=== PATIENT | male | born 1995 | race Two or more races ===

== ENCOUNTER 2018-05-25 13:32 | Emergency (ER) | payer BC ==
--- NOTE | 2018-05-25 13:54 | EDPHY ---
H & P Stated Complaint: POss dislocated L shoulder while paddleboarding;no other injuries - Personal History Current Tetanus Diphtheria and Acellular Pertussis (TDAP): Yes - Medical/Surgical History Other PMH: shoulder dislocations - Social History Smoking Status: Never smoked Time Seen by Provider: 05/25/18 13:41 HPI/ROS: CHIEF COMPLAINT: "I think I dislocated my shoulder" HISTORY OF PRESENT ILLNESS: 22-year-old male history of left shoulder dislocation x 8 was was pushing himself up onto a paddle board from the water and felt his left shoulder dislocate. No direct trauma or fall. Occurred shortly prior to arrival. Reproducible pain with palpation range of motion. No paresthesia. PHYSICAL EXAM (Prior to examination, patient consented to physical exam, hands were washed and my usual and customary physical exam procedures followed) 1) GENERAL: Well-developed, well-nourished, alert and oriented. Appears uncomfortable 2) HEAD: Normocephalic 3) HEENT: sclera anicteric 4) LUNGS: Breathing comfortably. 5) SKIN: Skin intact bilateral 6) MUSCULOSKELETAL: Left upper extremity: Lateral step-off anterior fullness consistent with dislocation 7) NEUROLOGIC: Bilateral deltoid sensation intact DIFFERENTIAL DIAGNOSIS: In no particular include but limited to fracture, anterior dislocation, posterior dislocation (Lisa,Baldomero Sharifa) Constitutional: Initial Vital Signs Temperature (C) 36.6 C 05/25/18 13:34 Heart Rate 77 05/25/18 13:34 Respiratory Rate 18 05/25/18 13:34 Blood Pressure 137/78 H 05/25/18 13:34 O2 Sat (%) 97 05/25/18 13:34 O2 Delivery Mode Room Air Allergies/Adverse Reactions: No Known Allergies Allergy (Unverified 05/25/18 13:33) Home Medications: Medication Instructions Recorded oxyCODONE/APAP 5/325 [Percocet 1 tab PO Q6 #7 tab 05/25/18 5/325] Medical Decision Making - Diagnostics Imaging Results: Imaging Impressions Shoulder X-Ray 05/25/18 13:53 Impression: 1. Anterior dislocation left humeral head with possible Hill-Sachs deformity. Shoulder X-Ray 05/25/18 14:42 Impression: 1. Good position of the left humeral head postreduction. 2. Hill-Sachs deformity present along the superolateral aspect of the humeral head. Imaging Impressions Shoulder X-Ray 05/25/18 13:53 Impression: 1. Anterior dislocation left humeral head with possible Hill-Sachs deformity. Shoulder X-Ray 05/25/18 14:42 Impression: 1. Good position of the left humeral head postreduction. 2. Hill-Sachs deformity present along the superolateral aspect of the humeral head. Images reviewed myself (Baldomero Gonzalez) Other Provider: I evaluated and participated in the management of the patient. I also evaluated the patient independently. My co-signature indicates that I have reviewed this chart and I agree with the findings and plan of care as documented. My personal H&P findings include: The patient presents to the ED with a recurrent left shoulder dislocation. He reports moderate pain with attempted movement. He denies associated numbness or weakness. Physical examination: Clinical evidence of an empty glenohumeral fossa noted in the left shoulder. Neurovascularly intact left upper extremity. Procedure: Dislocation reduction. Indication: Dislocation The shoulder was reduced in the usual fashion without complications. Post reduction the patient's neurovascular exam is normal. Post reduction x-ray demonstrates reduction of the joint to the anatomic position. The procedure was performed by myself. (Bob Rios) - Data Points Medications Given: Discontinued Medications Ketorolac Tromethamine (Toradol) 15 mg IVP EDNOW ONE Stop: 05/25/18 13:57 Last Admin: 05/25/18 14:02 Dose: 15 mg Morphine Sulfate (Morphine) 4 mg IVP EDNOW ONE Stop: 05/25/18 13:57 Last Admin: 05/25/18 14:01 Dose: 4 mg Departure - Departure Disposition: Home, Routine, Self-Care Clinical Impression: Recurrent dislocation, left shoulder Condition: Good Instructions: Shoulder Dislocation (ED) Additional Instructions: Return to the ER immediately if you experience discoloration, have worsening pain, numbness, tingling, or any other symptoms that concern you. If you received x-rays in the emergency department today, be advised, that ligamentous , tendon, muscular, and other non-bony injury cannot be fully ruled out. Try to keep your affected extremity elevated above the level of your chest, and keep cold packs on the affected area, for the next 48 hours. Referrals: Shankar Berger MD [Medical Doctor] - 2-3 days, call for appt. Prescriptions: oxyCODONE/APAP 5/325 [Percocet 5/325] 1 tab PO Q6 #7 tab
[2018-05-25] MEDS ORDERED: KETOROLAC 15 MG/1 ML SDV IVP ONE (13:56)
[2018-05-25 15:32] VITALS: BP 131/84
== END 2018-05-25 15:27 | disposition home or self-care (01) ==
PROC: 0RSKXZZ Reposition Left Shoulder Joint, External Approach (ICD-10-PCS; principal; 2018-05-25)
DX: M24.412 Recurrent dislocation, left shoulder (principal)
CPT/HCPCS: 96374; J1885; J2270